=== PATIENT | female | born 1975 | race Hispanic/Latino ===

== ENCOUNTER 2024-06-27 14:43 | Emergency (ER) | payer OTHER, BC ==
[~2024-06-27] VITALS: Ht 157.5 cm; Wt 86.6 kg
[2024-06-27] MEDS: ketOROlac 15MG/ML VIAL (15MG/ML) IM ONE (15:39)
[2024-06-27] MEDS: ORPHENADRINE 60MG/2ML IM ONE (15:39)
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
[2024-06-27] MEDS ORDERED: CYCL10TA16 PO (16:23)
[2024-06-27] MEDS ORDERED: KETO10TA2 PO (16:23)
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
[2024-06-27 16:25] VITALS: BP 125/75; PULSE 85; RESP 16; TEMP 98.3; O2SAT 99
== END 2024-06-27 16:30 | disposition home or self-care (01) ==
LOC: EDH 14:43
DX: S16.1XXA Strain of muscle, fascia and tendon at neck level, initial encounter (principal); E11.9 Type 2 diabetes mellitus without complications; V89.2XXA Person injured in unspecified motor-vehicle accident, traffic, initial encounter; Y93.89 Activity, other specified; Y92.89 Other specified places as the place of occurrence of the external cause; Y99.8 Other external cause status
CPT/HCPCS: 99284; 72040; 73030; 96372 ×2; J1885; J2360

== ENCOUNTER 2025-01-19 22:04 | Emergency (ER) | payer OTHER, BC ==
[~2025-01-19] VITALS: Ht 160 cm; Wt 89.4 kg
[~2025-01-19 22:04] MED LIST: CYCL10TA16 PO; KETO10TA2 PO
[2025-01-19] MEDS: LACTATED RINGERS 1000ML IV STA (22:53)
[2025-01-19] MEDS: ORPHENADRINE 60MG/2ML IM ONE (22:53)
[2025-01-19] MEDS: ondanSETRON 4MG TABLET PO ONE (22:53)
[2025-01-19] MEDS: TRIAMCINOLONE ACETONIDE 40 MG/ML 1ML VIAL IM ONE (22:54)
[2025-01-19 22:57] LABS: BASOPHILS # (AUTO) 0.03 K/uL (0.00-0.20); BASOPHILS % (AUTO) 0.4 % (0.0-5.0); EOSINOPHILS # (AUTO) 0.13 K/uL (0.00-0.70); EOSINOPHILS % (AUTO) 1.9 % (0.0-8.0); HEMATOCRIT 31.8 % (36-48); IMMATURE GRANULOCYTE ABSOLUTE 0.01 K/uL (0-1); LYMPHOCYTES # (AUTO) 2.5 K/uL (1.0-4.8); LYMPHOCYTES % (AUTO) 36.8 % (21.0-51.0); MEAN CORPUSCULAR HEMOGLOBIN 24.9 pg (27.0-33.0); MEAN CORPUSCULAR HGB CONC 31.8 g/dL (32.0-36.0); MEAN CORPUSCULAR VOLUME 78.3 fL (79-99); MONOCYTES # (AUTO) 0.3 K/uL (0.1-1.0); MONOCYTES % (AUTO) 5.1 % (3.0-13.0); NEUTROPHILS # (AUTO) 3.7 K/uL (1.8-7.7); NEUTROPHILS % (AUTO) 55.7 % (40.0-77.0); PLATELET COUNT (AUTO) 336 K/uL (130-400); RED BLOOD CELL COUNT(AUTO) 4.06 MIL/uL (4.00-5.50); RED CELL DISTRIBUTION WIDTH 16.3 % (11.0-15.5); WHITE BLOOD COUNT (AUTO) 6.7 K/uL (4.8-10.8)
[2025-01-19 23:04] LABS: CREATININE 0.6 mg/dL (0.5-1.0); POTASSIUM 3.7 mmol/L (3.5-5.1)
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
[2025-01-19] MEDS ORDERED: CYCL10TA16 PO (23:50)
[2025-01-20 00:01] VITALS: BP 138/82; PULSE 84; RESP 16; TEMP 97.4; O2SAT 100
== END 2025-01-20 00:03 | disposition home or self-care (01) ==
LOC: EDH 22:04
DX: S16.1XXA Strain of muscle, fascia and tendon at neck level, initial encounter (principal); E11.9 Type 2 diabetes mellitus without complications; Z90.49 Acquired absence of other specified parts of digestive tract; V89.2XXA Person injured in unspecified motor-vehicle accident, traffic, initial encounter; Y93.89 Activity, other specified; Y92.89 Other specified places as the place of occurrence of the external cause; Y99.8 Other external cause status
CPT/HCPCS: 99284; 96360; 80048; 85025; 36415; 96372 ×2; Q0162; J7120; J3301; J2360